=== PATIENT | female | born 1980 | race Caucasian/White ===

== ENCOUNTER 2020-06-21 11:18 | Outpatient (REF) | payer MEDICAID, SELFPAY ==
[2020-06-21 20:58] LABS: Abs Immature Grans 0.01 10^3/uL (0.0-0.06); Absolute Basophil Count 0.03 10^3/uL (0.0-0.2); Absolute Eosinophil Count 0.29 10^3/uL (0.0-0.7); Absolute Lymphocyte Count 0.78 10^3/uL (1.2-3.4); Absolute Monocyte Count 0.39 10^3/uL (0.1-0.8); Absolute Neutrophil Count 5.45 10^3/uL (1.2-6.7); Basophils % 0.4; Eosinophils % 4.2; HGB 10.9 g/dL (11.2-15.7); Immature Grans % 0.1; Lymphocytes % 11.2; MCH 22.4 pg (27.0-33.0); MCHC 30.3 % (32.0-36.0); MCV 74.1 fL (80-95); MPV 12.4 fL (8.0-11.0); Monocytes % 5.6; Neutrophils % 78.5; Nucleated RBC 0 %; RBC 4.86 10^6/uL (3.93-5.22); RDW 16.9 % (11.7-14.6); WBC 6.95 10^3/uL (4.4-10.8)
[2020-06-21 21:13] LABS: Anion Gap 8.8 mmol/L (3-11); BUN 12 mg/dL (7-18); CO2 25.2 mmol/L (21.0-32.0); Chloride 104 mmol/L (98-107); Glucose 83 mg/dL (74-106); Potassium 4.8 mmol/L (3.5-5.1); Sodium 138 mmol/L (136-145); TSH 2.29 uIU/mL (0.36-3.74)
[2020-06-21 21:24] LABS: Microcytosis 1+; Platelet Count 249 10^3/uL (130-400)
== END 2020-06-21 11:38 ==
LOC: NCHCN 11:18
PROVIDERS: PCP Physician Assistant Medical; Visit Provider Physician Assistant Medical
DX: E03.9 Hypothyroidism, unspecified (principal); D64.9 Anemia, unspecified; R55 Syncope and collapse
CPT/HCPCS: 80048; 84443; 85025

== ENCOUNTER 2021-01-23 14:50 | Outpatient (REF) | payer MEDICAID, SELFPAY ==
--- NOTE | 2021-01-23 14:00 | PAPFT_PTH ---
PATIENT: Antoinette Lemons LOC: [facility] U#:[id number] AGE/SX: 40/F ROOM: RE01/23/[address]: Ondina Xie : 1980 BED: DIS: 01/23/2021 SPEC #: [id number] RECD: 01/23/21 18:09 STATUS: LINDY COLEMAN #: [id number] DAPHNE: 01/23/21 14:[address]: Ondina Xie DEPT: [facility] Cytology RECD BY: Chel Swanson Tissues: 1 - CX/ENDOCX FOR PAP SMEARS Procedures: PAP THIN PREP/[facility] Screening HPV DNA PROBE Comments: [id number]
== END 2021-01-23 14:51 | disposition home or self-care (01) ==
LOC: NCHCN 14:50
PROVIDERS: PCP Physician Assistant Medical; Visit Provider Physician Assistant Medical
DX: Z12.4 Encounter for screening for malignant neoplasm of cervix (principal); Z11.51 Encounter for screening for human papillomavirus (HPV)
CPT/HCPCS: 88142; 87624

== ENCOUNTER 2021-06-05 18:17 | Outpatient (REF) | payer MEDICAID, SELFPAY ==
[2021-06-05 21:33] LABS: Abs Immature Grans 0.01 10^3/uL (0.0-0.06); Absolute Basophil Count 0.04 10^3/uL (0.0-0.2); Absolute Eosinophil Count 0.13 10^3/uL (0.0-0.7); Absolute Monocyte Count 0.36 10^3/uL (0.1-0.8); Basophils % 0.6; Eosinophils % 1.9; HCT 34.6 % (36.0-46.0); HGB 9.9 g/dL (11.2-15.7); Immature Grans % 0.1; Lymphocytes % 16.3; MCH 21.4 pg (27.0-33.0); MCHC 28.6 % (32.0-36.0); MCV 74.7 fL (80-95); MPV 12.2 fL (8.0-11.0); Monocytes % 5.3; Neutrophils % 75.8; Nucleated RBC 0 %; Platelet Count 288 10^3/uL (130-400); RBC 4.63 10^6/uL (3.93-5.22); RDW 16.8 % (11.7-14.6); RDW-SD 45.1 fL; WBC 6.74 10^3/uL (4.4-10.8)
[2021-06-05 21:50] LABS: TSH 3.22 uIU/mL (0.36-3.74)
== END 2021-06-05 18:18 | disposition home or self-care (01) ==
LOC: NCHCN 18:17
PROVIDERS: PCP Physician Assistant Medical; Visit Provider Physician Assistant Medical
DX: E03.9 Hypothyroidism, unspecified (principal); D64.9 Anemia, unspecified
CPT/HCPCS: 84443; 85025

== ENCOUNTER 2021-10-02 20:27 | Outpatient (REF) | payer MEDICAID, SELFPAY ==
[2021-10-02 19:45] LABS: Abs Immature Grans 0.02 10^3/uL (0.0-0.06); Absolute Basophil Count 0.04 10^3/uL (0.0-0.2); Absolute Eosinophil Count 0.19 10^3/uL (0.0-0.7); Absolute Monocyte Count 0.43 10^3/uL (0.1-0.8); Absolute Neutrophil Count 5.87 10^3/uL (1.2-6.7); Basophils % 0.5; Eosinophils % 2.5; HCT 31.9 % (36.0-46.0); HGB 9.4 g/dL (11.2-15.7); Immature Grans % 0.3; Lymphocytes % 13.2; MCH 21.8 pg (27.0-33.0); MCHC 29.5 % (32.0-36.0); MCV 73.8 fL (80-95); MPV 12.1 fL (8.0-11.0); Monocytes % 5.7; Neutrophils % 77.8; Nucleated RBC 0 %; Platelet Count 326 10^3/uL (130-400); RBC 4.32 10^6/uL (3.93-5.22); RDW 16.3 % (11.7-14.6); RDW-SD 43.5 fL; WBC 7.55 10^3/uL (4.4-10.8)
[2021-10-02 20:14] LABS: Diff Comment RBC Morph Reviewed; Microcytosis 2+
[2021-10-02 20:31] LABS: TSH 4.19 uIU/mL (0.36-3.74)
== END 2021-10-02 20:28 | disposition home or self-care (01) ==
LOC: NCHCN 20:27
PROVIDERS: PCP Physician Assistant Medical; Visit Provider Physician Assistant Medical
DX: E03.9 Hypothyroidism, unspecified (principal); N93.9 Abnormal uterine and vaginal bleeding, unspecified
CPT/HCPCS: 84443; 85025

== ENCOUNTER 2021-11-21 17:13 | Outpatient (REF) | payer MEDICAID, SELFPAY ==
[2021-11-21 13:51] LABS: TSH 4.46 uIU/mL (0.36-3.74)
== END 2021-11-21 17:14 | disposition home or self-care (01) ==
LOC: NCHCN 17:13
PROVIDERS: PCP Physician Assistant Medical; Visit Provider Physician Assistant Medical
DX: E03.9 Hypothyroidism, unspecified (principal)
CPT/HCPCS: 84443

== ENCOUNTER 2021-12-28 15:00 | Outpatient (REF) | payer MEDICAID, SELFPAY ==
[2021-12-28 14:04] LABS: Abs Immature Grans 0.02 10^3/uL (0.0-0.06); Absolute Basophil Count 0.03 10^3/uL (0.0-0.2); Absolute Eosinophil Count 0.15 10^3/uL (0.0-0.7); Absolute Lymphocyte Count 0.88 10^3/uL (1.2-3.4); Absolute Monocyte Count 0.31 10^3/uL (0.1-0.8); Absolute Neutrophil Count 4.98 10^3/uL (1.2-6.7); Basophils % 0.5; Eosinophils % 2.4; HCT 32.3 % (36.0-46.0); HGB 9.4 g/dL (11.2-15.7); Immature Grans % 0.3; Lymphocytes % 13.8; MCH 21.4 pg (27.0-33.0); MCHC 29.1 % (32.0-36.0); MCV 73.6 fL (80-95); MPV 11.7 fL (8.0-11.0); Monocytes % 4.9; Neutrophils % 78.1; Nucleated RBC 0 %; Platelet Count 306 10^3/uL (130-400); RBC 4.39 10^6/uL (3.93-5.22); RDW 15.9 % (11.7-14.6); RDW-SD 42.4 fL; WBC 6.37 10^3/uL (4.4-10.8)
[2021-12-28 14:16] LABS: Diff Comment RBC Morph Reviewed; Microcytosis 2+
[2021-12-28 14:23] LABS: ALT 20 U/L (14-59); AST 17 U/L (15-37); Alkaline Phosphatase 62 U/L (46-116); Anion Gap 10.2 mmol/L (3-11); BUN 28 mg/dL (7-18); Bilirubin, Total 0.4 mg/dL (0.2-1.0); CO2 24.8 mmol/L (21.0-32.0); CREATININE 0.9 mg/dL (0.55-1.02); Calcium 8.8 mg/dL (8.5-10.1); Chloride 105 mmol/L (98-107); Glucose 93 mg/dL (74-106); Potassium 4.9 mmol/L (3.5-5.1); Sodium 140 mmol/L (136-145); TSH 2.01 uIU/mL (0.36-3.74); Total Protein 7.4 g/dL (6.4-8.2)
== END 2021-12-28 15:01 | disposition home or self-care (01) ==
LOC: NCHCN 15:00
PROVIDERS: PCP Physician Assistant Medical; Visit Provider Physician Assistant Medical
DX: E03.9 Hypothyroidism, unspecified (principal); D64.9 Anemia, unspecified
CPT/HCPCS: 80053; 84443; 85025

== ENCOUNTER → 2022-02-28 01:28 | Outpatient (CLI) | payer MEDICAID, SELFPAY | PROVIDERS: PCP Physician Assistant Medical; Visit Provider Physician Assistant Medical ==